=== PATIENT | male | born 1985 | race Caucasian/White ===

== ENCOUNTER 2016-07-01 08:25 | Emergency (ER) | payer SELFPAY ==
[~2016-07-01] VITALS: Ht 190.5 cm; Wt 90.7 kg
[2016-07-01] MEDS: ONDANSETRON 4 MG ORAL DISINTEGRATING TAB (S0181) PO ONE (09:22)
[2016-07-01] MEDS: NORCO, ANEXSIA 5/325MG TABLET (HYDROcodone/ACETAMINOPHEN) PO ONE (09:22)
[2016-07-01] MEDS ORDERED: NORCOTAB PO (10:04)
[2016-07-01] MEDS ORDERED: ZOFR4TAB3 PO (10:04)
--- NOTE | 2016-07-01 10:06 | REP ---
RIGHT RIB SERIES: Five views including PA chest x-ray. HISTORY: Trauma. FINDINGS: PA chest radiograph remains normal. No change from comparison study July 04, 2014. Heart is not enlarged. Mediastinum is not widened. There is no evidence of pneumothorax or hydrothorax. Multiple views of the right ribcage show no visible rib fracture or incidental bony destructive lesion. IMPRESSION: Negative right rib views. Signed by Stone Blackwell MD 07/01/2016 01:58 P
[2016-07-01 10:10] VITALS: BP 138/88
== END 2016-07-01 10:30 | disposition home or self-care (01) ==
LOC: M ED 09:29
DX: S20.211A Contusion of right front wall of thorax, initial encounter (principal); W01.198A Fall on same level from slipping, tripping and stumbling with subsequent striking against other object, initial encounter; Y92.099 Unspecified place in other non-institutional residence as the place of occurrence of the external cause; Y93.01 Activity, walking, marching and hiking; Y99.9 Unspecified external cause status

== ENCOUNTER 2018-06-04 09:52 | Emergency (ER) | payer OTHER, SELFPAY ==
[~2018-06-04] VITALS: Ht 190.5 cm; Wt 84.5 kg
[~2018-06-04 09:52] MED LIST: NORCOTAB PO; ZOFR4TAB14 PO
[2018-06-04] MEDS ORDERED: BENA25CA4 PO (09:57)
[2018-06-04 10:51] LABS: HEMATOCRIT 44.5 % (42.0-52.0); HEMOGLOBIN 15.7 g/dl (13.5-17.5); MEAN CORPUSCULAR HEMOGLOBIN 35.4 pg (27.0-33.0); MEAN CORPUSCULAR HGB CONC 35.3 g/dl (32.0-36.5); MEAN CORPUSCULAR VOLUME 100.5 fl (80.0-96.0); PLATELET COUNT, AUTOMATED 300 10^3/uL (150-450); RED BLOOD COUNT 4.43 10^6/uL (4.30-6.10); WHITE BLOOD COUNT 7.9 10^3/uL (4.0-10.0)
[2018-06-04] MEDS ORDERED: OXAZEPAM 15 MG CAP PO ONE ×2 (11:00→14:45)
[2018-06-04 11:18] LABS: AMPHETAMINES LEVEL URINE NEGATIVE (NEGATIVE); BARBITURATES URINE NEGATIVE (NEGATIVE); BENZODIAZEPINES URINE NEGATIVE (NEGATIVE); CANNABINOIDS URINE POSITIVE (NEGATIVE); COCAINE METABOLITE URINE NEGATIVE (NEGATIVE); METHADONE URINE NEGATIVE (NEGATIVE); OPIATES URINE NEGATIVE (NEGATIVE); PHENCYCLIDINE URINE NEGATIVE (NEGATIVE)
[2018-06-04 11:21] LABS: ACETAMINOPHEN LEVEL < 2.0 UG/ML (10.0-30.0); ALBUMIN 4.5 GM/DL (3.2-5.2); ALT/SGPT 110 U/L (12-78); BILIRUBIN,DIRECT 0.2 MG/DL (0.0-0.2); BILIRUBIN,TOTAL 0.5 MG/DL (0.2-1.0); BLOOD UREA NITROGEN 12 MG/DL (7-18); CALCIUM LEVEL 9.4 MG/DL (8.5-10.1); CARBON DIOXIDE LEVEL 25 MEQ/L (21-32); CHLORIDE LEVEL 100 MEQ/L (98-107); ETHYL ALCOHOL (ETHANOL) 0.224 % (0.000-0.010); GLOMERULAR FILTRATION RATE > 60.0 (>60); GLUCOSE, FASTING 114 MG/DL (70-100); SALICYLATE LEVEL < 1.7 MG/DL (5.0-30.0); SODIUM LEVEL 139 MEQ/L (136-145); THYROID STIMULATING HORMONE 0.969 uIU/ML (0.358-3.740); TOTAL PROTEIN 8.4 GM/DL (6.4-8.2)
[2018-06-04] MEDS ORDERED: IBUPROFEN 600 MG TAB PO ONE (12:45)
[2018-06-04] MEDS ORDERED: ONDANSETRON 4 MG ORAL DISINTEGRATING TAB (Q0162 PER 1MG) PO ONE (14:45)
[2018-06-04 17:11] VITALS: BP 136/80
--- NOTE | 2018-06-04 21:02 | ECGEPIP ---
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
== END 2018-06-04 17:15 ==
LOC: M ED 09:52
DX: F32.9 Major depressive disorder, single episode, unspecified (principal); F10.10 Alcohol abuse, uncomplicated; R45.851 Suicidal ideations; F98.8 Other specified behavioral and emotional disorders with onset usually occurring in childhood and adolescence; F17.200 Nicotine dependence, unspecified, uncomplicated; Z79.899 Other long term (current) drug therapy
CPT/HCPCS: 36415; 80048; 80076; 80307; 84443; 85027; 93005; 99284; G0480; Q0162

== ENCOUNTER → 2018-10-02 | Outpatient (CLI) | payer BC ==
[~2018-10-02] MED LIST changes: +BENA25CA4 PO; +HYDR-3715 PO; -NORCOTAB PO
--- NOTE | 2018-10-02 10:49 | REP ---
PA and lateral chest: Comparison is the rib series dated 07/01/2016. The lung bee are clear. The cardiac size is normal. The thelma and mediastinum are unremarkable. Suspect a fracture of the posterior arch of the right eighth rib, age indeterminate. Impression: Age indeterminate fracture posterior arch of the right eighth rib, otherwise, negative PA and lateral chest. Electronically Signed by Pranav Rico MD 10/02/2018 10:40 A
== END ==
LOC: M WUC 09:43
PROVIDERS: ATTEND Physician Assistant
DX: Z87.81 Personal history of (healed) traumatic fracture (principal)

== ENCOUNTER 2019-04-16 12:00 | Emergency (ER) | payer BC, SELFPAY ==
[~2019-04-16] VITALS: Ht 193 cm; Wt 90.0 kg
[2019-04-16] MEDS ORDERED: IBUP-1114 PO (12:14)
[2019-04-16] MEDS ORDERED: NS 1,000 ML IV ONE (12:45)
[2019-04-16 13:18] LABS: HEMOGLOBIN 15.8 g/dl (13.5-17.5); MEAN CORPUSCULAR HEMOGLOBIN 35.3 pg (27.0-33.0); MEAN CORPUSCULAR HGB CONC 35.1 g/dl (32.0-36.5); MEAN CORPUSCULAR VOLUME 100.7 fl (80.0-96.0); PLATELET COUNT, AUTOMATED 215 10^3/uL (150-450); RED BLOOD COUNT 4.47 10^6/uL (4.30-6.10); WHITE BLOOD COUNT 4.9 10^3/uL (4.0-10.0)
--- NOTE | 2019-04-16 13:51 | REP ---
Clinical: Shortness of breath. Technique: PA and lateral. Comparison: 10/02/2018. Findings: Left lower lobe atelectasis. No consolidation. No effusion. No pneumothorax. Mediastinum and cardiac silhouette normal. Skeletal structures intact. Impression: Left lower lobe atelectasis. Electronically Signed by Dewey Little MD 04/16/2019 01:42 P
[2019-04-16 13:59] LABS: AMPHETAMINES LEVEL URINE NEGATIVE (NEGATIVE); BARBITURATES URINE NEGATIVE (NEGATIVE); BENZODIAZEPINES URINE NEGATIVE (NEGATIVE); CANNABINOIDS URINE POSITIVE (NEGATIVE); COCAINE METABOLITE URINE NEGATIVE (NEGATIVE); METHADONE URINE NEGATIVE (NEGATIVE); OPIATES URINE NEGATIVE (NEGATIVE); PHENCYCLIDINE URINE NEGATIVE (NEGATIVE)
[2019-04-16 14:00] LABS: ACETAMINOPHEN LEVEL < 2.0 UG/ML (10.0-30.0); ALBUMIN 4.2 GM/DL (3.2-5.2); ALT/SGPT 179 U/L (12-78); BILIRUBIN,DIRECT 0.2 MG/DL (0.0-0.2); BILIRUBIN,TOTAL 0.5 MG/DL (0.2-1.0); BLOOD UREA NITROGEN 7 MG/DL (7-18); CALCIUM LEVEL 9.2 MG/DL (8.5-10.1); CARBON DIOXIDE LEVEL 22 MEQ/L (21-32); CHLORIDE LEVEL 105 MEQ/L (98-107); CREATININE FOR GFR 1.03 MG/DL (0.70-1.30); ETHYL ALCOHOL (ETHANOL) 0.286 % (0.000-0.010); GLOMERULAR FILTRATION RATE > 60.0 (>60); GLUCOSE, FASTING 98 MG/DL (70-100); POTASSIUM SERUM 3.9 MEQ/L (3.5-5.1); SALICYLATE LEVEL < 1.7 MG/DL (5.0-30.0); SODIUM LEVEL 139 MEQ/L (136-145); THYROID STIMULATING HORMONE 0.838 uIU/ML (0.358-3.740)
[2019-04-16] MEDS ORDERED: LORazepam 2 MG TAB PO PRN (14:15)
[2019-04-16] MEDS ORDERED: OXAZ30CA2 PO (15:11)
[2019-04-16] MEDS ORDERED: IBUPROFEN 600 MG TAB PO ONE (15:15)
[2019-04-16] MEDS ORDERED: OXAZEPAM 15 MG CAP PO ONE (15:15)
[2019-04-16 15:29] VITALS: BP 138/94
[2019-04-16] MEDS ORDERED: THIAMINE 100 MG TAB PO SCH (21:00)
--- NOTE | 2019-04-17 07:48 | ECGEPIP ---
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
[2019-04-17] MEDS ORDERED: FOLIC ACID 1 MG TAB PO SCH (09:00)
[2019-04-17] MEDS ORDERED: MULTIVITAMINS/MINERALS THERAP 1 TAB PO SCH (09:00)
== END 2019-04-16 15:32 | disposition home or self-care (01) ==
LOC: M ED 12:00
DX: F10.220 Alcohol dependence with intoxication, uncomplicated (principal); F32.9 Major depressive disorder, single episode, unspecified; R00.0 Tachycardia, unspecified; R06.02 Shortness of breath; F17.200 Nicotine dependence, unspecified, uncomplicated
CPT/HCPCS: 36415; 71046; 80048; 80076; 80307; 84443; 85027; 93005; 99284; G0480

== ENCOUNTER → 2020-05-18 | Outpatient (CLI) | payer SELFPAY ==
[~2020-05-18] MED LIST changes: +IBUP-1114 PO; +OXAZ30CA2 PO
[2020-05-18 12:34] LABS: BASO # 0.1 10^3/uL (0.0-0.2); BASO % 0.7 % (0.0-1.0); EOS # 0.3 10^3/uL (0.0-0.5); EOS % 3.9 % (0.0-3.0); HEMATOCRIT 44.6 % (42.0-52.0); HEMOGLOBIN 15.7 g/dl (13.5-17.5); LYMPH # 2.9 10^3/uL (1.5-5.0); LYMPH % 38.8 % (24.0-44.0); MEAN CORPUSCULAR HEMOGLOBIN 34.1 pg (27.0-33.0); MEAN CORPUSCULAR HGB CONC 35.2 g/dl (32.0-36.5); MONO # 0.4 10^3/uL (0.0-0.8); MONO % 5.8 % (0.0-5.0); NEUTROPHILS # 3.7 10^3/uL (1.5-8.5); NEUTROPHILS % 50.7 % (36.0-66.0); PLATELET COUNT, AUTOMATED 342 10^3/uL (150-450); WHITE BLOOD COUNT 7.4 10^3/uL (4.0-10.0)
[2020-05-18 13:12] LABS: ALT/SGPT 27 U/L (12-78); BILIRUBIN,TOTAL 0.5 MG/DL (0.2-1.0); BLOOD UREA NITROGEN 19 MG/DL (7-18); CALCIUM LEVEL 9.7 MG/DL (8.5-10.1); CARBON DIOXIDE LEVEL 23 MEQ/L (21-32); CHLORIDE LEVEL 109 MEQ/L (98-107); CHOLESTEROL LEVEL 222 MG/DL (<200); CHOLESTEROL RISK RATIO 5.414 (<5); CREATININE FOR GFR 1.09 MG/DL (0.70-1.30); GLOMERULAR FILTRATION RATE > 60.0 (>60); GLUCOSE, FASTING 110 MG/DL (70-100); HDL CHOLESTEROL 41 MG/DL (>40); LDL CHOLESTEROL 154 MG/DL (<100); MAGNESIUM LEVEL 2.1 MG/DL (1.8-2.4); NON-HDL-C 181 MG/DL; POTASSIUM SERUM 4.6 MEQ/L (3.5-5.1); SODIUM LEVEL 141 MEQ/L (136-145); THYROID STIMULATING HORMONE 0.826 uIU/ML (0.358-3.740); TOTAL PROTEIN 7.6 GM/DL (6.4-8.2); TRIGLYCERIDES LEVEL 133 MG/DL (<150)
[2020-05-18 16:54] LABS: HEMOGLOBIN A1c 5.5 %
== END ==
LOC: M LAB 11:55
PROVIDERS: ATTEND Nurse Practitioner Adult Health
DX: F41.9 Anxiety disorder, unspecified (principal); K21.9 Gastro-esophageal reflux disease without esophagitis; Z79.899 Other long term (current) drug therapy

== ENCOUNTER → 2020-08-24 | Outpatient (CLI) | payer SELFPAY ==
[2020-08-24 14:14] LABS: BASO % 0.5 % (0.0-1.0); EOS # 0.1 10^3/uL (0.0-0.5); EOS % 1.6 % (0.0-3.0); HEMATOCRIT 41.9 % (42.0-52.0); HEMOGLOBIN 14.2 g/dl (13.5-17.5); LYMPH # 4.2 10^3/uL (1.5-5.0); LYMPH % 49.1 % (24.0-44.0); MEAN CORPUSCULAR HEMOGLOBIN 32.4 pg (27.0-33.0); MEAN CORPUSCULAR HGB CONC 33.9 g/dl (32.0-36.5); MEAN CORPUSCULAR VOLUME 95.7 fl (80.0-96.0); MONO # 0.6 10^3/uL (0.0-0.8); MONO % 7.1 % (2.0-8.0); NEUTROPHILS # 3.6 10^3/uL (1.5-8.5); NEUTROPHILS % 41.5 % (36.0-66.0); PLATELET COUNT, AUTOMATED 306 10^3/uL (150-450); RED BLOOD COUNT 4.38 10^6/uL (4.30-6.10); WHITE BLOOD COUNT 8.6 10^3/uL (4.0-10.0)
[2020-08-24 14:42] LABS: ALT/SGPT 23 U/L (12-78); BILIRUBIN,TOTAL 0.2 MG/DL (0.2-1.0); BLOOD UREA NITROGEN 21 MG/DL (7-18); CALCIUM LEVEL 9.1 MG/DL (8.5-10.1); CARBON DIOXIDE LEVEL 26 MEQ/L (21-32); CHLORIDE LEVEL 111 MEQ/L (98-107); CHOLESTEROL LEVEL 212 MG/DL (<200); CREATININE FOR GFR 1.12 MG/DL (0.70-1.30); GLOMERULAR FILTRATION RATE > 60.0 (>60); GLUCOSE, FASTING 97 MG/DL (70-100); HDL CHOLESTEROL 29 MG/DL (>40); POTASSIUM SERUM 4.6 MEQ/L (3.5-5.1); SODIUM LEVEL 141 MEQ/L (136-145); TRIGLYCERIDES LEVEL 468 MG/DL (<150)
[2020-08-24 14:43] LABS: ALBUMIN 3.8 GM/DL (3.2-5.2); MAGNESIUM LEVEL 2.3 MG/DL (1.8-2.4); NON-HDL-C 183 MG/DL; TOTAL PROTEIN 7.1 GM/DL (6.4-8.2)
[2020-08-24 14:49] LABS: HEMOGLOBIN A1c 5.2 %
== END ==
LOC: M WUC 11:44
PROVIDERS: ATTEND Nurse Practitioner Adult Health
DX: K21.9 Gastro-esophageal reflux disease without esophagitis (principal); F10.21 Alcohol dependence, in remission; Z79.899 Other long term (current) drug therapy; E78.00 Pure hypercholesterolemia, unspecified

== ENCOUNTER → 2020-12-11 | Outpatient (CLI) | payer SELFPAY ==
[2020-12-11 16:05] LABS: BASO # 0.1 10^3/uL (0.0-0.2); BASO % 0.6 % (0.0-1.0); EOS # 0.3 10^3/uL (0.0-0.5); EOS % 3.3 % (0.0-3.0); HEMATOCRIT 41.9 % (42.0-52.0); HEMOGLOBIN 14.3 g/dl (13.5-17.5); LYMPH # 4.2 10^3/uL (1.5-5.0); LYMPH % 50.5 % (24.0-44.0); MEAN CORPUSCULAR HEMOGLOBIN 32.9 pg (27.0-33.0); MEAN CORPUSCULAR HGB CONC 34.1 g/dl (32.0-36.5); MEAN CORPUSCULAR VOLUME 96.3 fl (80.0-96.0); MONO # 0.7 10^3/uL (0.0-0.8); MONO % 8.2 % (2.0-8.0); NEUTROPHILS # 3.1 10^3/uL (1.5-8.5); NEUTROPHILS % 37.3 % (36.0-66.0); PLATELET COUNT, AUTOMATED 346 10^3/uL (150-450); RED BLOOD COUNT 4.35 10^6/uL (4.30-6.10); WHITE BLOOD COUNT 8.2 10^3/uL (4.0-10.0)
[2020-12-11 16:40] LABS: BILIRUBIN,TOTAL 0.3 MG/DL (0.2-1.0); CALCIUM LEVEL 9.7 MG/DL (8.5-10.1); CREATININE FOR GFR 1.44 MG/DL (0.70-1.30); GLOMERULAR FILTRATION RATE 59.4 (>60); POTASSIUM SERUM 4.6 MEQ/L (3.5-5.1)
[2020-12-11 16:41] LABS: MAGNESIUM LEVEL 2.5 MG/DL (1.8-2.4); THYROID STIMULATING HORMONE 0.334 uIU/ML (0.358-3.740); TOTAL PROTEIN 7.4 GM/DL (6.4-8.2)
[2020-12-11 19:07] LABS: HEMOGLOBIN A1c 5.2 %
== END ==
LOC: M WUC 11:48
PROVIDERS: ATTEND Nurse Practitioner Family
DX: K21.9 Gastro-esophageal reflux disease without esophagitis (principal); F10.21 Alcohol dependence, in remission; Z79.899 Other long term (current) drug therapy; E78.00 Pure hypercholesterolemia, unspecified; F41.9 Anxiety disorder, unspecified

== ENCOUNTER → 2021-01-29 | Outpatient (CLI) | payer MEDICAID, SELFPAY ==
--- NOTE | 2021-01-29 14:02 | REP ---
INDICATION: ABN LABS COMPARISON: None. TECHNIQUE: Benitez scale and color evaluation of the thyroid gland using the linear high frequency transducer. FINDINGS: The thyroid gland is normal in contour, shape, size, and echogenicity. No nodule/mass or cystic abnormalities are appreciated. Right thyroid lobe measures 5.5 x 1.6 x 1.8 cm. Isthmus measures 3 mm in width. Left thyroid lobe measures 4.8 x 1.7 x 1.3 cm. IMPRESSION: Normal thyroid ultrasound. <Electronically signed by Dewey Little > 01/29/21 [id number]
== END ==
LOC: M RAD 12:08
PROVIDERS: ATTEND Nurse Practitioner Family
DX: R94.6 Abnormal results of thyroid function studies (principal)

== ENCOUNTER → 2021-02-16 | Outpatient (CLI) | payer SELFPAY ==
[2021-02-16 16:39] LABS: FREE T3 2.9 PG/ML (2.2-4.0); FREE T4 0.89 NG/DL (0.76-1.46); THYROID STIMULATING HORMONE 1.32 uIU/ML (0.358-3.740); THYROXINE (T4) 8.4 UG/DL (4.5-12.0)
== END ==
LOC: M WUC 14:32
PROVIDERS: ATTEND Nurse Practitioner Family
DX: R94.6 Abnormal results of thyroid function studies (principal)

== ENCOUNTER 2022-05-17 14:50 | Emergency (ER) | payer SELFPAY ==
[~2022-05-17] VITALS: Ht 190.5 cm; Wt 84.1 kg
[2022-05-17] MEDS ORDERED: LIDOCAINE 1% MDV 20ML VIAL INFIL ONE (17:10)
[2022-05-17] MEDS ORDERED: CEPH500C PO (17:48)
[2022-05-17 18:20] VITALS: BP 125/80
== END 2022-05-17 18:28 | disposition home or self-care (01) ==
LOC: M ED 15:39
DX: S91.141A Puncture wound with foreign body of right great toe without damage to nail, initial encounter (principal); W45.8XXA Other foreign body or object entering through skin, initial encounter; I48.91 Unspecified atrial fibrillation; F41.9 Anxiety disorder, unspecified; F32.9 Major depressive disorder, single episode, unspecified; F12.10 Cannabis abuse, uncomplicated

== ENCOUNTER 2022-10-02 22:47 | Inpatient (IN) | payer SELFPAY ==
[~2022-10-02] VITALS: Ht 193 cm; Wt 81.8 kg
[~2022-10-02 22:47] MED LIST changes: +CEPH500C PO
[2022-10-02 23:18] LABS: HEMATOCRIT 44.4 % (42.0-52.0); HEMOGLOBIN 15.3 g/dl (13.5-17.5); MEAN CORPUSCULAR HEMOGLOBIN 33.1 pg (27.0-33.0); MEAN CORPUSCULAR HGB CONC 34.5 g/dl (32.0-36.5); MEAN CORPUSCULAR VOLUME 96.1 fl (80.0-96.0); PLATELET COUNT, AUTOMATED 359 10^3/uL (150-450); RED BLOOD COUNT 4.62 10^6/uL (4.30-6.10); WHITE BLOOD COUNT 12.5 10^3/uL (4.0-10.0)
[2022-10-02 23:49] LABS: BARBITURATES URINE NEGATIVE (NEGATIVE); BENZODIAZEPINES URINE NEGATIVE (NEGATIVE); COCAINE METABOLITE URINE NEGATIVE (NEGATIVE); METHADONE URINE NEGATIVE (NEGATIVE); OPIATES URINE NEGATIVE (NEGATIVE); PHENCYCLIDINE URINE NEGATIVE (NEGATIVE)
[2022-10-02 23:51] LABS: ETHYL ALCOHOL (ETHANOL) < 0.003 % (0.000-0.010)
[2022-10-02 23:52] LABS: SALICYLATE LEVEL < 3.0 MG/DL (<30)
[2022-10-02 23:53] LABS: ACETAMINOPHEN LEVEL < 2.0 UG/ML (10.0-20.0); ALBUMIN 4.5 G/DL (3.2-5.2); ALKALINE PHOSPHATASE 79 U/L (46-116); ALT/SGPT 23 U/L (7.0-40); AST/SGOT 12 U/L (<34); BILIRUBIN,DIRECT 0.1 MG/DL (<0.4); BILIRUBIN,TOTAL 0.4 MG/DL (0.3-1.2); BLOOD UREA NITROGEN 13 MG/DL (9-23); CALCIUM LEVEL 9.7 MG/DL (8.5-10.1); CARBON DIOXIDE LEVEL 20 MMOL/L (20-31); CHLORIDE LEVEL 108 MMOL/L (98-107); CREATININE FOR GFR 1.32 MG/DL (0.70-1.30); GLOMERULAR FILTRATION RATE > 60.0 (>60); GLUCOSE, FASTING 95 MG/DL (60-100); POTASSIUM SERUM 4.3 MMOL/L (3.5-5.1); SODIUM LEVEL 142 MMOL/L (136-145); TOTAL PROTEIN 7.4 G/DL (5.7-8.2)
[2022-10-02 23:54] LABS: AMPHETAMINES LEVEL URINE POSITIVE (NEGATIVE); CANNABINOIDS URINE POSITIVE (NEGATIVE); THYROID STIMULATING HORMONE 1.234 uIU/ML (0.55-4.78)
[2022-10-03] MEDS ORDERED: ACETAMINOPHEN TAB 650MG DOSE (2X325MG) PO PRN (12:45)
[2022-10-03] MEDS ORDERED: IBUPROFEN 400MG TAB PO PRN (12:45)
[2022-10-03] MEDS ORDERED: traZODone 50 MG TAB PO PRN (12:45)
[2022-10-03] MEDS ORDERED: diphenhydrAMINE 25MG CAP PO PRN (12:45)
[2022-10-03] MEDS ORDERED: MOM 30ML SUSPENSION UDC PO PRN (12:45)
[2022-10-03] MEDS ORDERED: MAALOX 30 ML SUSP *UDC PO PRN (12:45)
[2022-10-03] MEDS: OLANZapine ORAL DISINTEGRATING TAB 5MG PO PRN (13:54)
[2022-10-03] MEDS: NICOTINE 21MG/24HR 1 EA TRANSDERMAL TD PRN (13:56)
[2022-10-03] MEDS ORDERED: PRENTAB29 PO (14:21)
[2022-10-03] MEDS ORDERED: HOME MED LIST COMPLETE! XX SCH (14:25)
[2022-10-03 15:09] VITALS: BP 134/89; TEMP 99.4; O2SAT 100
[2022-10-04 06:47] VITALS: BP 150/92; TEMP 97.9; O2SAT 98
[2022-10-04] MEDS: OLANZapine ORAL DISINTEGRATING TAB 5MG PO PRN (11:08)
[2022-10-04] MEDS: ASPIRIN 81MG ENTERIC TABLET PO SCH (14:16)
[2022-10-04] MEDS: NICOTINE 21MG/24HR 1 EA TRANSDERMAL TD PRN (14:18)
[2022-10-04 16:39] VITALS: BP 126/88; TEMP 98.1; O2SAT 98
[2022-10-04 16:40] VITALS: BP 140/88; TEMP 98.3; O2SAT 100
[2022-10-04] MEDS ORDERED: DIVALPROEX 125 MG TAB PO ONE (21:00)
[2022-10-04] MEDS: METOPROLOL TART 25 MG TABLET PO SCH (21:03)
[2022-10-04] MEDS: MIRTAZAPINE 15 MG TAB PO SCH (21:03)
[2022-10-05 06:41] VITALS: BP 111/63; TEMP 98; O2SAT 100
[2022-10-05] MEDS: METOPROLOL TART 25 MG TABLET PO SCH ×2 (08:15→21:22)
[2022-10-05] MEDS: DIVALPROEX 250MG TAB PO SCH ×2 (08:15→21:22)
[2022-10-05] MEDS: ASPIRIN 81MG ENTERIC TABLET PO SCH (08:15)
[2022-10-05] MEDS ORDERED: busPIRone 5 MG TAB PO ONE (09:40)
[2022-10-05 16:42] VITALS: BP 111/71; TEMP 98.7; O2SAT 99
[2022-10-05] MEDS: MIRTAZAPINE 15 MG TAB PO SCH (21:22)
[2022-10-05] MEDS: busPIRone 5 MG TAB PO SCH (21:22)
[2022-10-06 06:23] VITALS: BP 122/73; TEMP 97.6; O2SAT 100
[2022-10-06 08:21] VITALS: BP 139/82
[2022-10-06 08:24] VITALS: BP 139/82
[2022-10-06] MEDS: METOPROLOL TART 25 MG TABLET PO SCH (08:24)
[2022-10-06] MEDS: DIVALPROEX 250MG TAB PO SCH (08:24)
[2022-10-06] MEDS: ASPIRIN 81MG ENTERIC TABLET PO SCH (08:24)
[2022-10-06] MEDS: busPIRone 5 MG TAB PO SCH (08:24)
[2022-10-06] MEDS ORDERED: MIRT-10 PO (09:01)
[2022-10-06] MEDS ORDERED: BUSP5TA PO (09:01)
[2022-10-06] MEDS ORDERED: NICO21PAT TD (09:01)
[2022-10-06] MEDS ORDERED: METO1TAB87 PO (09:01)
[2022-10-06] MEDS ORDERED: DEPA250T32 PO (09:01)
== END 2022-10-06 11:44 | disposition home or self-care (01) | DRG 753 ==
LOC: M ED 22:47 → M ED INP 10-03 12:42 → M PSY 10-03 14:46
PROVIDERS: ADMIT Psychiatry & Neurology Psychiatry; ATTEND Student in an Organized Health Care Education/Training Program
DX: F31.9 Bipolar disorder, unspecified (principal); Z62.811 Personal history of psychological abuse in childhood; Z63.8 Other specified problems related to primary support group

== ENCOUNTER 2023-05-19 13:05 | Emergency (ER) | payer SELFPAY ==
[~2023-05-19] VITALS: Ht 193 cm; Wt 83.2 kg
[~2023-05-19 13:05] MED LIST changes: +BUSP5TA PO; +DEPA250T32 PO; +METO1TAB87 PO; +MIRT-10 PO; +NICO21PAT TD; +PRENTAB29 PO
[2023-05-19 14:25] LABS: HEMATOCRIT 38.1 % (42.0-52.0); HEMOGLOBIN 13.2 g/dl (13.5-17.5); MEAN CORPUSCULAR HEMOGLOBIN 33.4 pg (27.0-33.0); MEAN CORPUSCULAR HGB CONC 34.6 g/dl (32.0-36.5); MEAN CORPUSCULAR VOLUME 96.5 fl (80.0-96.0); PLATELET COUNT, AUTOMATED 242 10^3/uL (150-450); RED BLOOD COUNT 3.95 10^6/uL (4.30-6.10); WHITE BLOOD COUNT 8.3 10^3/uL (4.0-10.0)
[2023-05-19 14:55] LABS: BLOOD UREA NITROGEN 16 MG/DL (9-23); CALCIUM LEVEL 8.9 MG/DL (8.5-10.1); CARBON DIOXIDE LEVEL 25 MMOL/L (20-31); CHLORIDE LEVEL 109 MMOL/L (98-107); CREATININE FOR GFR 0.98 MG/DL (0.70-1.30); GLOMERULAR FILTRATION RATE > 60.0 (>60); GLUCOSE, FASTING 81 MG/DL (60-100); POTASSIUM SERUM 4.4 MMOL/L (3.5-5.1); SODIUM LEVEL 140 MMOL/L (136-145)
[2023-05-19 14:57] LABS: THYROID STIMULATING HORMONE 0.579 uIU/ML (0.55-4.78)
[2023-05-19] MEDS ORDERED: HOLTER MONITOR XX (16:09)
[2023-05-19 16:18] VITALS: BP 113/64; TEMP 98.2; O2SAT 97
== END 2023-05-19 16:33 | disposition home or self-care (01) ==
LOC: M ED 13:05
DX: R00.2 Palpitations (principal); F10.20 Alcohol dependence, uncomplicated; F31.9 Bipolar disorder, unspecified; Z79.899 Other long term (current) drug therapy

== ENCOUNTER → 2023-05-20 | Outpatient (CLI) | payer SELFPAY ==
[~2023-05-20] MED LIST changes: +HOLTER MONITOR XX
== END ==
LOC: M EKG 12:10
PROVIDERS: ATTEND Emergency Medicine
DX: R00.2 Palpitations (principal); Z53.9 Procedure and treatment not carried out, unspecified reason

== ENCOUNTER 2023-11-12 17:33 | Emergency (ER) | payer SELFPAY ==
[~2023-11-12] VITALS: Ht 193 cm; Wt 95.5 kg
[2023-11-12] MEDS ORDERED: PARO20TA3 (17:45)
[2023-11-12 19:24] VITALS: BP 126/80; TEMP 97.9; O2SAT 98
== END 2023-11-12 20:07 | disposition home or self-care (01) ==
LOC: M ED 17:33
DX: M70.52 Other bursitis of knee, left knee (principal); I10 Essential (primary) hypertension; F32.A Depression, unspecified; F41.9 Anxiety disorder, unspecified; F12.90 Cannabis use, unspecified, uncomplicated; Z79.899 Other long term (current) drug therapy